=== PATIENT | female | born 1960 | race African-American/Black ===

== ENCOUNTER → 2021-03-27 | Outpatient (CLI) | payer OTHER | LOC: CAT 15:01 | DX: I31.3 Pericardial effusion (noninflammatory) (principal); J90 Pleural effusion, not elsewhere classified; J98.11 Atelectasis; I71.4 Abdominal aortic aneurysm, without rupture; M50.022 Cervical disc disorder at C5-C6 level with myelopathy; R18.8 Other ascites ==